=== PATIENT | female | born 1990 | race Caucasian/White ===

== ENCOUNTER 2016-11-18 23:08 | Emergency (ER) | payer OTHER ==
[~2016-11-18] VITALS: Ht 165.1 cm; Wt 52.9 kg
[~2016-11-18 23:08] MED LIST: ROBITUSSIN AC,T10 ML PO; ZITHROMAX Z-PA250 MG PO
== END 2016-11-19 00:52 | disposition home or self-care (01) ==
LOC: EME 23:08
PROC: 0HQLXZZ Repair Left Lower Leg Skin, External Approach (ICD-10-PCS; principal; 2016-11-18)
DX: S81.812A Laceration without foreign body, left lower leg, initial encounter (principal); V86.59XA Driver of other special all-terrain or other off-road motor vehicle injured in nontraffic accident, initial encounter; F17.200 Nicotine dependence, unspecified, uncomplicated
CPT/HCPCS: 99281; 99284

== ENCOUNTER → 2017-11-15 | Outpatient (CLI) | payer OTHER ==
[~2017-11-15] VITALS: Ht 162.6 cm; Wt 60.0 kg
[~2017-11-15] MED LIST changes: +PRENATAL TABLE1 EAC3 PO
[2017-11-15 14:31] VITALS: BP 103/59
== END | disposition home or self-care (01) ==
LOC: IVINF 13:57
DX: Z34.83 Encounter for supervision of other normal pregnancy, third trimester (principal); Z31.82 Encounter for Rh incompatibility status; Z3A.28 28 weeks gestation of pregnancy; Z67.41 Type O blood, Rh negative
CPT/HCPCS: 96372; J2790